=== PATIENT | female | born 1960 | race Caucasian/White ===

== ENCOUNTER 2019-03-01 15:16 | Emergency (ER) | payer MEDICARE ==
[~2019-03-01] VITALS: Ht 165.1 cm; Wt 70.0 kg
[~2019-03-01 15:16] MED LIST: AMOXICILLIN/PO500 MG PO; AMOXICILLIN500 MG PO; BENADRYL 50MG C50 MG PO; BP MED; BUPROPION150 MG PO; BUSPIRONE5 MG PO; CITALOPRAM40 MG PO; DICLOFENAC POTA50 MG PO; FLEXERIL5 M1 PO; KLONOPIN0.5 MG PO; LORTAB 5/3255 MG PO; LORTAB5 PO; MELATONIN QUICK5 MG PO; NYAMYC100000 MG EX; TRAMADOL HCL50 MG PO; TRAZODONE300 MG PO; TRAZODONE50 MG PO; ULTRAM50 M1 OR; ULTRAM50 M1 PO; VICOPROFEN PO
[2019-03-01] MEDS ORDERED: MOTRIN400 MG PO (16:06)
[2019-03-01 16:24] VITALS: BP 118/63
== END 2019-03-01 16:24 | disposition home or self-care (01) ==
LOC: ED 15:16
DX: S86.911A Strain of unspecified muscle(s) and tendon(s) at lower leg level, right leg, initial encounter (principal); X50.0XXA Overexertion from strenuous movement or load, initial encounter; Y93.89 Activity, other specified

== ENCOUNTER 2019-04-02 08:20 | Emergency (ER) | payer MEDICARE ==
[~2019-04-02] VITALS: Ht 165.1 cm; Wt 90.0 kg
[~2019-04-02 08:20] MED LIST changes: +MOTRIN400 MG PO
[2019-04-02 08:52] LABS: HEMATOCRIT 42.2 % (37.0-47.0); IMMATURE GRANULOCYTES 0.2 % (0.0-5.0); MEAN CELL VOLUME 94.4 fL CALC (80.0-100.0); MEAN CORPUSCULAR HGB 31.3 pG CALC (26.0-32.0); MEAN CORPUSCULAR HGB CONC 33.2 g/L CALC (32.0-36.0); NEUT# 4.75 thou/uL (2.00-7.15); RED BLOOD COUNT 4.47 mill/uL (4.20-5.60)
[2019-04-02] MEDS ORDERED: VENLAFAXINE HC150 MG PO (08:59)
[2019-04-02] MEDS ORDERED: LORAZEPAM0.5 MG PO (08:59)
[2019-04-02] MEDS ORDERED: WELLBUTRIN SR150 MG PO (09:00)
[2019-04-02] MEDS ORDERED: TRAZODONE50 MG PO (09:01)
[2019-04-02 09:04] LABS: ANION GAP 12 (6-22 (CALC)); BUN 11 mg/dL (7-17); BUN/CREATININE RATIO 14 (12-20 (CALC)); C-REACTIVE PROTEIN 0.9 mg/dL (0-0.9); CARBON DIOXIDE 25 mmol/l (22-30); CHLORIDE 106 mmol/l (95-108); CREATININE 0.8 mg/dL (0.5-1.0); GFR > 60 ML/MIN (>=60 (CALC)); GFR FOR AFR.AMER. > 60 ML/MIN (>=60 (CALC)); POTASSIUM 3.8 mmol/l (3.5-5.1); SODIUM 140 mmol/l (137-146)
[2019-04-02] MEDS ORDERED: NORCO1 TA1 PO (09:30)
[2019-04-02 10:51] VITALS: BP 98/64
== END 2019-04-02 10:51 | disposition home or self-care (01) ==
LOC: ED 08:20
PROVIDERS: Family Medicine
DX: M17.11 Unilateral primary osteoarthritis, right knee (principal)

== ENCOUNTER 2019-05-02 13:35 | Emergency (ER) | payer OTHER, MEDICARE ==
[~2019-05-02] VITALS: Ht 165.1 cm; Wt 80.0 kg
[~2019-05-02 13:35] MED LIST changes: +LORAZEPAM0.5 MG PO; +NORCO1 TA1 PO; +VENLAFAXINE HC150 MG PO; +WELLBUTRIN SR150 MG PO
[2019-05-02] MEDS ORDERED: MEDDOSEPAK PO (14:37)
[2019-05-02] MEDS ORDERED: TORADOL PO (14:37)
[2019-05-02] MEDS ORDERED: TRAZODONE HCL100 MG PO (14:41)
[2019-05-02 14:50] VITALS: BP 119/66
== END 2019-05-02 14:50 | disposition home or self-care (01) | DRG 563 ==
LOC: ED 13:35
DX: S86.912A Strain of unspecified muscle(s) and tendon(s) at lower leg level, left leg, initial encounter (principal); S86.911A Strain of unspecified muscle(s) and tendon(s) at lower leg level, right leg, initial encounter; X50.0XXA Overexertion from strenuous movement or load, initial encounter; Y93.89 Activity, other specified

== ENCOUNTER 2019-06-04 19:06 | Emergency (ER) | payer MEDICARE, OTHER ==
[~2019-06-04] VITALS: Ht 165.1 cm; Wt 82.0 kg
[~2019-06-04 19:06] MED LIST changes: +MEDDOSEPAK PO; +TORADOL PO; +TRAZODONE HCL100 MG PO
[2019-06-04] MEDS ORDERED: IBUPROFEN600 MG PO (19:50)
[2019-06-04 20:20] VITALS: BP 119/72
== END 2019-06-04 20:20 | disposition home or self-care (01) ==
LOC: ED 19:06
DX: M17.0 Bilateral primary osteoarthritis of knee (principal)

== ENCOUNTER 2021-08-28 07:52 | Emergency (ER) | payer MEDICARE ==
[~2021-08-28] VITALS: Ht 165.1 cm; Wt 85.0 kg
[~2021-08-28 07:52] MED LIST changes: +EFFEXOR XR150 MG PO; +IBUPROFEN600 MG PO
[2021-08-28] MEDS ORDERED: NAPROXEN500 MG PO (09:01)
[2021-08-28] MEDS ORDERED: LORTAB 1010 MG PO (09:01)
[2021-08-28 09:20] VITALS: BP 140/85
== END 2021-08-28 09:20 | disposition home or self-care (01) ==
LOC: ED 07:52
DX: M17.11 Unilateral primary osteoarthritis, right knee (principal); F32.A Depression, unspecified; F41.9 Anxiety disorder, unspecified; F17.200 Nicotine dependence, unspecified, uncomplicated

== ENCOUNTER 2021-10-03 07:10 | Emergency (ER) | payer MEDICARE ==
[~2021-10-03] VITALS: Ht 165.1 cm; Wt 80.0 kg
[~2021-10-03 07:10] MED LIST changes: +LORTAB 1010 MG PO; +NAPROXEN500 MG PO
[2021-10-03 08:52] VITALS: BP 113/61
[2021-10-03] MEDS ORDERED: PERCOCET 5/325M1 TAB PO (08:53)
[2021-10-03] MEDS ORDERED: TORADOL PO (08:53)
== END 2021-10-03 09:10 | disposition home or self-care (01) ==
LOC: ED 07:10
DX: M17.12 Unilateral primary osteoarthritis, left knee (principal); F32.A Depression, unspecified; F41.9 Anxiety disorder, unspecified

== ENCOUNTER 2021-10-08 14:13 | Emergency (ER) | payer MEDICARE ==
[~2021-10-08] VITALS: Ht 165.1 cm; Wt 85.0 kg
[~2021-10-08 14:13] MED LIST changes: +PERCOCET 5/325M1 TAB PO
[2021-10-08] MEDS ORDERED: PREDNISONE50 MG PO (15:40)
[2021-10-08] MEDS ORDERED: ALL DAY10 MG PO (15:40)
[2021-10-08] MEDS ORDERED: CEPHALEXIN500 MG PO (15:40)
[2021-10-08 16:34] VITALS: BP 136/78
== END 2021-10-08 16:36 | disposition home or self-care (01) ==
LOC: ED 14:13
DX: T63.461A Toxic effect of venom of wasps, accidental (unintentional), initial encounter (principal); F32.A Depression, unspecified; F41.9 Anxiety disorder, unspecified

== ENCOUNTER 2022-03-29 13:12 | Emergency (ER) | payer MEDICARE ==
[~2022-03-29] VITALS: Ht 165.1 cm; Wt 75.0 kg
[~2022-03-29 13:12] MED LIST changes: +ALL DAY10 MG PO; +CEPHALEXIN500 MG PO; +PREDNISONE50 MG PO
[2022-03-29 13:22] VITALS: BP 117/70
[2022-03-29] MEDS ORDERED: LORAZEPAM0.5 MG PO (13:28)
[2022-03-29 13:30] VITALS: BP 112/75
[2022-03-29] MEDS ORDERED: CEPHALEXIN500 MG PO (13:45)
[2022-03-29 13:46] VITALS: BP 107/70
[2022-03-29 13:50] VITALS: BP 107/70
== END 2022-03-29 13:58 | disposition home or self-care (01) ==
LOC: ED 13:12
PROC: 0HQKXZZ Repair Right Lower Leg Skin, External Approach (ICD-10-PCS; principal; 2022-03-29)
DX: S81.811A Laceration without foreign body, right lower leg, initial encounter (principal); F41.9 Anxiety disorder, unspecified; X58.XXXA Exposure to other specified factors, initial encounter

== ENCOUNTER 2022-04-01 08:57 | Emergency (ER) | payer MEDICARE ==
[~2022-04-01] VITALS: Ht 165.1 cm; Wt 81.8 kg
[2022-04-01] MEDS ORDERED: BACTRIM DS1 TAB PO (09:21)
[2022-04-01 09:36] VITALS: BP 125/70
== END 2022-04-01 09:55 | disposition home or self-care (01) ==
LOC: ED 08:57
DX: S81.811D Laceration without foreign body, right lower leg, subsequent encounter (principal); L08.9 Local infection of the skin and subcutaneous tissue, unspecified; X58.XXXD Exposure to other specified factors, subsequent encounter

== ENCOUNTER 2022-07-06 12:51 | Emergency (ER) | payer MEDICARE ==
[~2022-07-06] VITALS: Ht 165.1 cm; Wt 89.0 kg
[~2022-07-06 12:51] MED LIST changes: +BACTRIM DS1 TAB PO
[2022-07-06 12:58] VITALS: BP 120/81
[2022-07-06 13:00] VITALS: BP 125/81
[2022-07-06 15:29] VITALS: BP 125/81
== END 2022-07-06 15:40 | disposition home or self-care (01) ==
LOC: ED 12:51
DX: S90.02XA Contusion of left ankle, initial encounter (principal); W22.8XXA Striking against or struck by other objects, initial encounter; Y92.009 Unspecified place in unspecified non-institutional (private) residence as the place of occurrence of the external cause

== ENCOUNTER 2022-08-25 12:06 | Day surgery (SDC) | payer MEDICARE ==
[~2022-08-25] VITALS: Ht 165.1 cm; Wt 86.2 kg
[~2022-08-25 12:06] MED LIST changes: +MOTRIN800 MG PO; +NEURONTIN100 MG PO; +PAXIL40 MG PO; +TRAZODONE100 MG PO
[2022-08-25 18:37] VITALS: BP 119/85
[2022-09-03] MEDS ORDERED: HYDROMORPHON4 MG PO (18:37)
[2022-09-03] MEDS ORDERED: ELIQUIS STARTER5 MG PO (18:46)
[2022-09-04] MEDS ORDERED: ELIQUIS STARTER5 MG PO (10:05)
== END 2022-08-25 18:55 | disposition home or self-care (01) ==
LOC: ORM 12:06
PROVIDERS: ATTEND Orthopaedic Surgery
PROC: 0SRD0J9 Replacement of Left Knee Joint with Synthetic Substitute, Cemented, Open Approach (ICD-10-PCS; principal; 2022-08-25)
PROC: 3E0T3BZ Introduction of Anesthetic Agent into Peripheral Nerves and Plexi, Percutaneous Approach (ICD-10-PCS; 2022-08-25)
DX: M17.12 Unilateral primary osteoarthritis, left knee (principal)
CPT/HCPCS: J0131

== ENCOUNTER 2024-05-16 14:37 | Emergency (ER) | payer MEDICARE ==
[2024-05-16] VITALS (10 sets, daily range): BP systolic 113–141; BP diastolic 54–96
[~2024-05-16] VITALS: Ht 165.1 cm; Wt 95.2 kg
[~2024-05-16 14:37] MED LIST changes: +ELIQUIS STARTER5 MG PO; +HYDROMORPHON4 MG PO
[2024-05-16 17:46] LABS: BASO% 0.4 % (0-3); EOS% 1.6 % (0-8); HEMATOCRIT 41.7 % (37.0-47.0); HEMOGLOBIN 14.2 g/dl (12.0-16.0); IMMATURE GRANULOCYTES 0.1 % (0.0-5.0); LYMPH% 18.7 % (15-41); MEAN CELL VOLUME 92.7 fL CALC (80.0-100.0); MEAN CORPUSCULAR HGB 31.6 pG CALC (26.0-32.0); MEAN CORPUSCULAR HGB CONC 34.1 g/dL CAL (32.0-36.0); MONO% 3.6 % (2-13); NEUT# 5.24 thou/uL (2.00-7.15); NEUT% 75.6 % (42-76); RED BLOOD COUNT 4.5 mill/uL (4.20-5.60)
[2024-05-16 17:56] LABS: ALBUMIN 3.8 g/dL (3.2-5.0); BILIRUBIN, TOTAL 0.9 mg/dL (0.02-1.3); CREATININE 0.9 mg/dL (0.5-1.0); TOTAL PROTEIN 6.4 g/dL (6.3-8.2)
[2024-05-16 18:04] LABS: ACT PARTIAL THROMBO TIME 24.4 SECONDS (20.0-32.5)
[2024-05-16] MEDS ORDERED: XARELTO15 MG PO (18:09)
[2024-05-16 18:10] LABS: PROTHROMBIN TIME 9.9 SECONDS (9.0-12.5)
[2024-05-16] MEDS ORDERED: RIVAROXABAN 15 MG TAB PO ONE (18:10)
[2024-05-16] MEDS ORDERED: RIVAROXABAN 20 MG TAB PO ONE (18:35)
== END 2024-05-16 18:41 | disposition home or self-care (01) ==
LOC: ED 14:37
PROVIDERS: Nurse Practitioner Acute Care
DX: I82.621 Acute embolism and thrombosis of deep veins of right upper extremity (principal); F41.9 Anxiety disorder, unspecified; F32.A Depression, unspecified; Z72.0 Tobacco use